=== PATIENT | male | born 1965 | race Hispanic/Latino ===

== ENCOUNTER → 2018-01-22 | Outpatient (CLI) | payer MEDICARE ==
[~2018-01-22] MED LIST: AMLO5TAB4 PO; ASPI-1005 PO; CARV25TA PO; GABA-529 PO; HYDR25 PO; INSNPH SQ; Isosorbide Mononitrate PO; TORS20TA4 PO; TRAM50TA4 PO
== END | disposition home or self-care (01) ==
LOC: SHCH 14:39
PROVIDERS: ATTEND Internal Medicine Cardiovascular Disease
DX: I31.3 Pericardial effusion (noninflammatory) (principal); I34.0 Nonrheumatic mitral (valve) insufficiency; I51.7 Cardiomegaly; R94.39 Abnormal result of other cardiovascular function study
CPT/HCPCS: 93306

== ENCOUNTER 2018-12-18 00:08 | Emergency (ER) | payer MEDICARE ==
[2018-12-18 00:51] LABS: BASOPHILS % (AUTO) 0.8 % (0.0-5.0); HEMATOCRIT 32.3 % (42-54); LYMPHOCYTES % (AUTO) 11.5 % (21.0-51.0); MEAN CORPUSCULAR HEMOGLOBIN 31.8 pg (27.0-33.0); MEAN CORPUSCULAR HGB CONC 34.1 g/dL (32.0-36.0); MEAN CORPUSCULAR VOLUME 93.4 fL (79-99); MONOCYTES % (AUTO) 12.3 % (3.0-13.0); NEUTROPHILS % (AUTO) 73.4 % (40.0-77.0); PLATELET COUNT (AUTO) 83 K/uL (130-400); RED BLOOD CELL COUNT(AUTO) 3.46 MIL/uL (4.50-6.20); RED CELL DISTRIBUTION WIDTH 17.1 % (11.0-15.5); WHITE BLOOD COUNT (AUTO) 4.3 K/uL (4.8-10.8)
[2018-12-18 01:05] LABS: CREATININE 6.5 mg/dL (0.5-1.5); POTASSIUM 3.9 mmol/L (3.5-5.1)
[2018-12-18 01:06] LABS: ALBUMIN 3.5 g/dL (3.5-5.0); TOTAL PROTEIN, SERUM 7.8 g/dL (6.0-8.3)
[2018-12-18 01:33] LABS: APPEARANCE,URINE Clear (CLEAR); BILIRUBIN,URINE Negative (NEGATIVE); COLOR,URINE Yellow (YELLOW); GLUCOSE, URINE (UA) 500 mg/dL (NEGATIVE); KETONES,URINE Negative (NEGATIVE); LEUKOCYTE ESTERASE ,URINE Small (NEGATIVE); NITRATE,URINE Negative (NEGATIVE); OCCULT BLOOD,URINE Negative (NEGATIVE); PH,URINE >=9.0 (5.0-8.0); PROTEIN,URINE >=1000 mg/dL (NEGATIVE); UROBILINOGEN,URINE 0.2 mg/dL (0.2-1.0)
[2018-12-18 01:42] LABS: BACTERIA,URINE None Seen /HPF (None Seen); RBC,URINE None Seen /HPF (0-1); SQUAMOUS EPITHELIAL CELL,UR Rare /HPF (0-2)
[2018-12-18] MEDS ORDERED: CEPHALEXIN 500 MG CAPSULE ONE (02:09)
== END 2018-12-18 02:21 | disposition home or self-care (01) ==
LOC: EDH 00:08
DX: N39.0 Urinary tract infection, site not specified (principal); R42 Dizziness and giddiness; R19.7 Diarrhea, unspecified; R11.10 Vomiting, unspecified; I12.0 Hypertensive chronic kidney disease with stage 5 chronic kidney disease or end stage renal disease; E11.22 Type 2 diabetes mellitus with diabetic chronic kidney disease; N18.6 End stage renal disease; Z91.018 Allergy to other foods; Z98.890 Other specified postprocedural states; Z72.0 Tobacco use
CPT/HCPCS: 36415; 71046; 80053; 81001; 85025; 87040; 87088; 93005

== ENCOUNTER 2019-04-12 14:31 | Emergency (ER) | payer MEDICARE ==
[2019-04-12] MEDS ORDERED: MORPHINE SULFATE 4 MG/1ML SYG ONE (16:13)
[2019-04-12] MEDS ORDERED: ONDANSETRON HCL 4 MG/2 ML VIAL ONE (16:13)
[2019-04-12 16:18] LABS: BASOPHILS % (AUTO) 0.8 % (0.0-5.0); EOSINOPHILS % (AUTO) 2.4 % (0.0-8.0); LYMPHOCYTES % (AUTO) 10.1 % (21.0-51.0); MEAN CORPUSCULAR HEMOGLOBIN 31.6 pg (27.0-33.0); MEAN CORPUSCULAR HGB CONC 34.4 g/dL (32.0-36.0); MONOCYTES % (AUTO) 11.3 % (3.0-13.0); NEUTROPHILS % (AUTO) 75.4 % (40.0-77.0); NUCLEATED RED BLOOD CELLS 0.1 % (0.0-0.19); PLATELET COUNT (AUTO) 79 K/uL (130-400); RED BLOOD CELL COUNT(AUTO) 3.26 MIL/uL (4.50-6.20); RED CELL DISTRIBUTION WIDTH 15.7 % (11.0-15.5); WHITE BLOOD COUNT (AUTO) 4.1 K/uL (4.8-10.8)
[2019-04-12 16:38] LABS: CREATININE 5.6 mg/dL (0.5-1.5); POTASSIUM 3.5 mmol/L (3.5-5.1)
[2019-04-12 16:40] LABS: PARTIAL THROMBOPLASTIN TIME 33.7 SEC (26.3-35.5)
[2019-04-12 16:54] LABS: ALBUMIN 3.5 g/dL (3.5-5.0); BILIRUBIN,DIRECT 0.6 mg/dL (0.0-0.3); BILIRUBIN,TOTAL 1.5 mg/dL (0.2-1.0); TOTAL PROTEIN, SERUM 7.9 g/dL (6.0-8.3)
[2019-04-12 16:57] LABS: INR 1.13 (0.85-1.15); PROTHROMBIN TIME 11.8 SEC (9.6-11.6)
== END 2019-04-12 18:26 | disposition home or self-care (01) ==
LOC: EDH 14:31
DX: R60.1 Generalized edema (principal); R10.12 Left upper quadrant pain; R11.2 Nausea with vomiting, unspecified; R19.7 Diarrhea, unspecified; I12.0 Hypertensive chronic kidney disease with stage 5 chronic kidney disease or end stage renal disease; E11.22 Type 2 diabetes mellitus with diabetic chronic kidney disease; N18.6 End stage renal disease; Z99.2 Dependence on renal dialysis; Z98.890 Other specified postprocedural states; Z72.0 Tobacco use; Z91.018 Allergy to other foods
CPT/HCPCS: 36415; 74176; 80048; 80076; 82550; 83605; 83690; 85025; 85610; 85730; 93005; 96374; 96375; 99285; J2270; J2405

== ENCOUNTER 2019-10-04 00:13 | Emergency (ER) | payer MEDICARE ==
[2019-10-04] MEDS ORDERED: KETOROLAC TROMETHAMINE 60 MG/2 ML VIAL ONE (01:19)
[2019-10-04] MEDS ORDERED: ORPHENADRINE CITRATE 30 MG/ML ML ONE (01:19)
== END 2019-10-04 01:44 | disposition home or self-care (01) ==
LOC: EDH 00:13
DX: S13.4XXA Sprain of ligaments of cervical spine, initial encounter (principal); I12.0 Hypertensive chronic kidney disease with stage 5 chronic kidney disease or end stage renal disease; E11.22 Type 2 diabetes mellitus with diabetic chronic kidney disease; N18.6 End stage renal disease; Z99.2 Dependence on renal dialysis; Z72.0 Tobacco use; Z91.018 Allergy to other foods; X58.XXXA Exposure to other specified factors, initial encounter; Y93.89 Activity, other specified; Y92.89 Other specified places as the place of occurrence of the external cause; Y99.8 Other external cause status
CPT/HCPCS: 96372 ×2; 99284; J1885; J2360

== ENCOUNTER 2019-10-17 03:22 | Emergency (ER) | payer MEDICARE ==
[2019-10-17 03:41] LABS: BASOPHILS % (AUTO) 0.7 % (0.0-5.0); EOSINOPHILS % (AUTO) 2.9 % (0.0-8.0); HEMATOCRIT 30.7 % (42-54); LYMPHOCYTES % (AUTO) 11.2 % (21.0-51.0); MEAN CORPUSCULAR HEMOGLOBIN 30.4 pg (27.0-33.0); MEAN CORPUSCULAR HGB CONC 32.9 g/dL (32.0-36.0); MEAN CORPUSCULAR VOLUME 92.5 fL (79-99); MONOCYTES % (AUTO) 11.2 % (3.0-13.0); NEUTROPHILS % (AUTO) 73.8 % (40.0-77.0); PLATELET COUNT (AUTO) 97 K/uL (130-400); RED BLOOD CELL COUNT(AUTO) 3.32 MIL/uL (4.50-6.20); RED CELL DISTRIBUTION WIDTH 15.9 % (11.0-15.5); WHITE BLOOD COUNT (AUTO) 4.5 K/uL (4.8-10.8)
[2019-10-17 03:51] LABS: CREATININE 6.9 mg/dL (0.5-1.5); POTASSIUM 3.7 mmol/L (3.5-5.1)
[2019-10-17 03:55] LABS: ALBUMIN 3.1 g/dL (3.5-5.0); BILIRUBIN,TOTAL 1.1 mg/dL (0.2-1.0); TOTAL PROTEIN, SERUM 7.6 g/dL (6.0-8.3)
[2019-10-17 04:04] LABS: INR 1.07 (0.85-1.15); PARTIAL THROMBOPLASTIN TIME 33.5 SEC (26.3-35.5); PROTHROMBIN TIME 11.5 SEC (9.6-11.6)
[2019-10-17 04:09] LABS: B-TYPE NATRIURETIC PEPTIDE 3530 pg/mL (0-100)
== END 2019-10-17 06:25 | disposition home or self-care (01) ==
LOC: EDH 03:22
DX: R07.89 Other chest pain (principal); I12.0 Hypertensive chronic kidney disease with stage 5 chronic kidney disease or end stage renal disease; E11.22 Type 2 diabetes mellitus with diabetic chronic kidney disease; N18.6 End stage renal disease; Z91.018 Allergy to other foods; Z99.2 Dependence on renal dialysis; Z72.0 Tobacco use; Z98.890 Other specified postprocedural states
CPT/HCPCS: 36415; 71045; 80053; 82550; 83880; 84484; 85025; 85610; 85730; 93005

== ENCOUNTER 2019-11-01 04:45 | Emergency (ER) | payer MEDICARE ==
[2019-11-01] MEDS ORDERED: ZOSYN 3.375GM+NS 50ML 50 ML IV ONE (06:14)
== END 2019-11-01 06:41 | disposition home or self-care (01) ==
LOC: EDH 04:45
DX: M62.838 Other muscle spasm (principal); M54.5 Low back pain; Z91.018 Allergy to other foods; E11.9 Type 2 diabetes mellitus without complications; I10 Essential (primary) hypertension; Z72.0 Tobacco use
CPT/HCPCS: 72100; 96372 ×2; 99284; J2543

== ENCOUNTER 2019-11-06 17:36 | Emergency (ER) | payer MEDICARE ==
[2019-11-06] MEDS ORDERED: KETOROLAC TROMETHAMINE 30MG/ML ONE (19:27)
[2019-11-06 19:29] LABS: BASOPHILS % (AUTO) 0.3 % (0.0-5.0); EOSINOPHILS % (AUTO) 0.9 % (0.0-8.0); HEMATOCRIT 30.8 % (42-54); LYMPHOCYTES % (AUTO) 5.2 % (21.0-51.0); MEAN CORPUSCULAR HEMOGLOBIN 30.7 pg (27.0-33.0); MEAN CORPUSCULAR HGB CONC 32.8 g/dL (32.0-36.0); MEAN CORPUSCULAR VOLUME 93.6 fL (79-99); MONOCYTES % (AUTO) 11.6 % (3.0-13.0); NEUTROPHILS % (AUTO) 81.7 % (40.0-77.0); PLATELET COUNT (AUTO) 145 K/uL (130-400); RED BLOOD CELL COUNT(AUTO) 3.29 MIL/uL (4.50-6.20); RED CELL DISTRIBUTION WIDTH 14.9 % (11.0-15.5); WHITE BLOOD COUNT (AUTO) 9.4 K/uL (4.8-10.8)
[2019-11-06 20:01] LABS: ALBUMIN 2.9 g/dL (3.5-5.0); BILIRUBIN,TOTAL 0.9 mg/dL (0.2-1.0); CREATININE 7.1 mg/dL (0.5-1.5); CRP QUANTITATIVE 54.2 mg/L (0.00-9.0); TOTAL PROTEIN, SERUM 7.9 g/dL (6.0-8.3)
[2019-11-06] MEDS ORDERED: LIDOCAINE 1%-EPI 1:100,000 20 ML VIAL IJ ONE (20:37)
[2019-11-06 20:46] LABS: ERYTHROCYTE SEDIMENTATION RATE 56 MM/HR (0-20)
[2019-11-06 22:25] LABS: APPEARANCE BODY FLUID CLOUDY (CLEAR); COLOR,BODY FLUID YELLOW (LT YELLOW); SPECIMENTYPE,BODY FLUID SYNOVIAL; TOTAL VOLUME,BODY FLUID 40 mL
[2019-11-06 22:26] LABS: BODY FLUID WBC 25744 /cu. mm.
[2019-11-06 22:27] LABS: BODY FLUID RBC 556 /cu. mm.
[2019-11-06 22:31] LABS: GLUCOSE,BODY FLUID 75 mg/dL (1-40)
[2019-11-06 22:52] LABS: BF LYMPHOCYTE 2 %
[2019-11-07 02:51] LABS: CRYSTALS, SYNOVIAL FLUID SEE SEPARATE REPORT
== END 2019-11-06 23:03 | disposition home or self-care (01) ==
LOC: EDH 17:36
DX: M25.462 Effusion, left knee (principal); I12.0 Hypertensive chronic kidney disease with stage 5 chronic kidney disease or end stage renal disease; E11.22 Type 2 diabetes mellitus with diabetic chronic kidney disease; N18.6 End stage renal disease; Z72.0 Tobacco use; Z91.018 Allergy to other foods
CPT/HCPCS: 20610; 29505; 36415; 73562; 80053; 82945; 85025; 85651; 86140; 87071; 87205; 89051; 89060; 96374; 99284; J1885; J3490

== ENCOUNTER 2019-11-25 02:32 | Inpatient (IN) | payer MEDICARE ==
[~2019-11-25] VITALS: Ht 175.3 cm; Wt 86.9 kg
[2019-11-25] MEDS ORDERED: DICYCLOMINE HCL 10 MG/ML 2ML AMP IM ONE (05:04)
[2019-11-25] MEDS ORDERED: ONDANSETRON HCL 4 MG/2 ML VIAL ONE (05:04)
[2019-11-25 05:09] LABS: BASOPHILS % (AUTO) 0.3 % (0.0-5.0); EOSINOPHILS % (AUTO) 1.6 % (0.0-8.0); LYMPHOCYTES % (AUTO) 9.2 % (21.0-51.0); MEAN CORPUSCULAR HEMOGLOBIN 31.6 pg (27.0-33.0); MEAN CORPUSCULAR HGB CONC 33.1 g/dL (32.0-36.0); MEAN CORPUSCULAR VOLUME 95.5 fL (79-99); MONOCYTES % (AUTO) 12.7 % (3.0-13.0); NEUTROPHILS % (AUTO) 75.6 % (40.0-77.0); PLATELET COUNT (AUTO) 118 K/uL (130-400); RED BLOOD CELL COUNT(AUTO) 1.55 MIL/uL (4.50-6.20); RED CELL DISTRIBUTION WIDTH 16.2 % (11.0-15.5); WHITE BLOOD COUNT (AUTO) 7.1 K/uL (4.8-10.8)
[2019-11-25 05:14] LABS: HEMATOCRIT 14.8 % (42-54)
[2019-11-25 05:26] LABS: INR 1.04 (0.85-1.15); PARTIAL THROMBOPLASTIN TIME 31.7 SEC (26.3-35.5); PROTHROMBIN TIME 11.2 SEC (9.6-11.6)
[2019-11-25 05:41] LABS: ALBUMIN 2.3 g/dL (3.5-5.0); BILIRUBIN,DIRECT 0.3 mg/dL (0.0-0.3); BILIRUBIN,TOTAL 0.6 mg/dL (0.2-1.0); POTASSIUM 4.7 mmol/L (3.5-5.1); TOTAL PROTEIN, SERUM 5.6 g/dL (6.0-8.3)
[2019-11-25] MEDS ORDERED: SODIUM CHLORIDE 0.9% 250 ML IV ONE (07:43)
[2019-11-25] MEDS ORDERED: MAG HYDROX/AL HYDROX/SIMETH ES 30 ML SUSP UDCUP PO PRN (08:45)
[2019-11-25] MEDS ORDERED: DiphenhydrAMINE HCL 50 MG/ML VIAL IV PRN (08:45)
[2019-11-25] MEDS ORDERED: NITROGLYCERIN 0.4 MG SL TAB SL PRN (08:45)
[2019-11-25] MEDS ORDERED: ONDANSETRON HCL 4 MG/2 ML VIAL IV PRN (08:45)
[2019-11-25] MEDS ORDERED: LACTULOSE 20 GM/30 ML UDCUP PO PRN (08:45)
[2019-11-25] MEDS ORDERED: GUAIFENESIN-DM 200/20 MG 10 ML PO PRN (08:45)
[2019-11-25] MEDS ORDERED: HYDRALAZINE HCL 20 MG/ML VIAL IV PRN (08:45)
[2019-11-25] MEDS ORDERED: ACETAMINOPHEN 325 MG TAB PO PRN (08:45)
[2019-11-25] MEDS ORDERED: DIPHENHYDRAMINE HCL 25 MG CAPSULE PO PRN (08:45)
[2019-11-25 10:37] VITALS: BP 115/52
[2019-11-25] MEDS ORDERED: ONDANSETRON HCL 4 MG/2 ML VIAL IVP PRN (13:45)
[2019-11-25] MEDS ORDERED: EPOETIN ALFA 10,000 UNIT/ML VIAL SQ SCH (15:00)
[2019-11-25 15:56] LABS: % IRON SATURATION 34.5 % (30-44)
[2019-11-25 16:15] VITALS: BP 108/80
[2019-11-25] MEDS: ACETAMINOPHEN 325 MG TAB PO PRN ×2 (17:58→23:38)
[2019-11-25 19:50] VITALS: BP 132/58
[2019-11-25 23:49] VITALS: BP 119/62
[2019-11-26] VITALS (19 sets, daily range): BP systolic 112–147; BP diastolic 48–78
[2019-11-26] MEDS ORDERED: TRAMADOL HCL 50 MG TABLET PO SCH (02:30)
[2019-11-26] MEDS ORDERED: INSU100I35 SQ ×2 (02:44)
[2019-11-26] MEDS ORDERED: HYDR-4153 PO (02:46)
[2019-11-26] MEDS ORDERED: ISOS30TA6 PO (02:50)
[2019-11-26] MEDS ORDERED: SEVE800T7 PO (02:50)
[2019-11-26 04:14] LABS: BASOPHILS % (AUTO) 0.5 % (0.0-5.0); EOSINOPHILS % (AUTO) 2.1 % (0.0-8.0); LYMPHOCYTES % (AUTO) 10.6 % (21.0-51.0); MEAN CORPUSCULAR HEMOGLOBIN 30.5 pg (27.0-33.0); MEAN CORPUSCULAR HGB CONC 32.5 g/dL (32.0-36.0); MEAN CORPUSCULAR VOLUME 93.6 fL (79-99); MONOCYTES % (AUTO) 14.6 % (3.0-13.0); NEUTROPHILS % (AUTO) 71.9 % (40.0-77.0); PLATELET COUNT (AUTO) 122 K/uL (130-400); RED CELL DISTRIBUTION WIDTH 15.3 % (11.0-15.5); WHITE BLOOD COUNT (AUTO) 5.8 K/uL (4.8-10.8)
[2019-11-26 04:17] LABS: HEMATOCRIT 20.6 % (42-54)
[2019-11-26 04:21] LABS: INR 1.01 (0.85-1.15); PARTIAL THROMBOPLASTIN TIME 33.1 SEC (26.3-35.5); PROTHROMBIN TIME 10.9 SEC (9.6-11.6)
[2019-11-26 04:37] LABS: ALBUMIN 2.6 g/dL (3.5-5.0); BILIRUBIN,TOTAL 1.3 mg/dL (0.2-1.0); CREATININE 6.4 mg/dL (0.5-1.5); MAGNESIUM 2.2 mg/dL (1.80-2.40); PHOSPHORUS 5.9 mg/dL (2.5-4.9); POTASSIUM 3.7 mmol/L (3.5-5.1)
[2019-11-26 08:13] LABS: HEPATITIS A ANTIBODY IGM Negative (Negative); HEPATITIS B CORE IGM Negative (Negative); HEPATITIS Bs ANTIGEN SCREEN P Negative (Negative)
[2019-11-26] MEDS ORDERED: PANTOPRAZOLE SODIUM 40 MG TABLET.DR PO SCH (09:00)
[2019-11-26] MEDS ORDERED: PROPOFOL 10 MG/ML 20ML VIAL IV ONE (10:56)
[2019-11-26] MEDS ORDERED: SODIUM CHLORIDE 0.9% 500ML 500 ML IV ONE (12:59)
--- NOTE | 2019-11-26 14:27 | NUR ---
NUTR[facility] EDUCATION PARISH provided Renal Dialysis Nutrition education to Pt. PARISH reviewed reference materials and answered all of Pt questions. Pt denies need for Diabetes nutrition education secondary to previous weight loss and currently PRN medications. Pt denies need for Cirrhosis nutrition education secondary to follow up appt for confirmation (as per Pt) scheduled for December 03, 2019. Addendum: 11/26/19 at [address] Amended: Links added.
--- NOTE | 2019-11-26 14:39 | NUR ---
RD Notification Pt admitted with Ascites. Food allergies: Broccoli, Apple, Celery. Pt with Clear Liquid diet order in place. Diet held this AM for procedure. Pt reports not eating anything today at time of visit. RD provided Renal Dialysis nutrition education. Pt denies need for Cirrhosis and Diabetes nutrition education (Please See Nutrition Education note). Pt with moderate fluid retention (BLE 3+ pitting edema as per EMR). Recommend Adv diet as tolerated to Renal dialysis diet order Recommend 1500mL Fluid Restriction RD provided Nutrition Education RD to continue to monitor. Please notify as additional nutrition concerns arise. Thank you. Addendum: 11/26/19 at [address] RD Amended: Links added.
[2019-11-26] MEDS ORDERED: ALBUMIN (HUMAN) 25% 200 ML IV SCH (14:45)
--- NOTE | 2019-11-26 15:01 | NUR ---
RE: PARACENTESIS PATIENT S/P EGD WITH MAC TODAY AND NOW GETTING HEMODIALYSIS WITH [address] Luis Armando BAER NOTIFIED OF PATENT'S CURRENT STATUS AND RESCHEDULED PARACENTESIS FOR TOMORROW. PROCEDURE OUTCOME REPORTED TO Yelena FONSECA RN
--- NOTE | 2019-11-26 17:41 | NUR ---
MET W PATIENT FOR DC PLANNING- STATES IS INDEPENDENT, ACTIVE, NO DME, HOME SAFE AND ACCESSIBLE LIVES WITH SPOUSE SANTIAGO WHO WILL PROVIDE TRANSPORT STATES HAS HD MWF AT [facility], ON HD X 3 YEARS, NO DC NEEDS ANTICIPATED, Addendum: 11/26/19 at 1743 by SHAYNE GONZALEZ RN CM Amended: Links added.
--- NOTE | 2019-11-26 17:45 | NUR ---
DISPO WILL BE TO HOME IN CARE OF FAMILY Addendum: 11/26/19 at 1745 by SHAYNE GONZALEZ RN CM Amended: Links added.
[2019-11-26 18:07] LABS: HEMATOCRIT 23.9 % (42-54)
--- NOTE | 2019-11-26 20:24 | NUR ---
SALTILLO PT REQUESTED TO BE RELEASED AM DESPITE REPEATED EXPLANATION THAT MD WANTS TO KEEP PT AT LEAST 24 HOURS FOR PARACENTESIS PROCEDURE. RISKS AND HAZARDS EXPLAINED TO PT,STILL INSISTS AND IS DECIDED TO LEAVE AMA,JEFF HASSAN NP AWARE AND SPOKE WITH PT. SALTILLO DOCUMENT SIGNED. PIV DCD ASEPTICALLY ,WITH GOOD HEMOSTASIS. DCD STABLE AMA Addendum: 11/26/19 at 2158 by BEATRIZ ROBERTS RN RN Amended: Links added.
== END 2019-11-26 20:29 | disposition left against medical advice (07) | DRG 377 ==
LOC: EDH 02:32 → EDHIP 05:56 → DAHIP 11:30 → 3AH 18:29 → 3CH 18:43
PROVIDERS: ADMIT Internal Medicine; ATTEND Internal Medicine
PROC: 5A1D70Z Performance of Urinary Filtration, Intermittent, Less than 6 Hours Per Day (ICD-10-PCS; 2019-11-25)
PROC: 30233N1 Transfusion of Nonautologous Red Blood Cells into Peripheral Vein, Percutaneous Approach (ICD-10-PCS; principal; 2019-11-26)
PROC: 5A1D70Z Performance of Urinary Filtration, Intermittent, Less than 6 Hours Per Day (ICD-10-PCS; 2019-11-26)
PROC: 0DJ08ZZ Inspection of Upper Intestinal Tract, Via Natural or Artificial Opening Endoscopic (ICD-10-PCS; 2019-11-26)
DX: K92.2 Gastrointestinal hemorrhage, unspecified (principal); N18.6 End stage renal disease; I12.0 Hypertensive chronic kidney disease with stage 5 chronic kidney disease or end stage renal disease; E87.70 Fluid overload, unspecified; D64.9 Anemia, unspecified; E11.51 Type 2 diabetes mellitus with diabetic peripheral angiopathy without gangrene; K70.31 Alcoholic cirrhosis of liver with ascites; E11.22 Type 2 diabetes mellitus with diabetic chronic kidney disease; J44.9 Chronic obstructive pulmonary disease, unspecified; Z91.018 Allergy to other foods; Z88.8 Allergy status to other drugs, medicaments and biological substances; Z99.2 Dependence on renal dialysis; Z91.19 Patient's noncompliance with other medical treatment and regimen; Z83.3 Family history of diabetes mellitus; Z82.5 Family history of asthma and other chronic lower respiratory diseases; Z82.3 Family history of stroke; Z82.0 Family history of epilepsy and other diseases of the nervous system; Z82.49 Family history of ischemic heart disease and other diseases of the circulatory system
CPT/HCPCS: 36415; 43235; 71045; 74176; 80048; 80053; 80074; 80076; 82550; 82728; 82948; 83540; 83550; 83690; 83735; 84100; 84484; 85014; 85018; 85025; 85610; 85730; 86850; 86900; 86901; 86922; 90935; 93005; G0378; J0500; J0885; J2405; J2704; J7040; J7050; P9016; P9046

== ENCOUNTER 2020-04-16 18:46 | Inpatient (IN) | payer MEDICARE ==
[~2020-04-16] VITALS: Ht 175.3 cm; Wt 89.7 kg
[~2020-04-16 18:46] MED LIST changes: +HYDR-4153 PO; -HYDR25 PO; -INSNPH SQ; +INSU100I35 SQ; +ISOS30TA6 PO; -Isosorbide Mononitrate PO; +SEVE800T7 PO; -TORS20TA4 PO; -TRAM50TA4 PO
[2020-04-16] MEDS ORDERED: ONDANSETRON HCL 4 MG/2 ML VIAL ONE (20:03)
[2020-04-16 20:28] LABS: BASOPHILS % (AUTO) 0.6 % (0.0-5.0); EOSINOPHILS % (AUTO) 1.4 % (0.0-8.0); HEMATOCRIT 28.1 % (42-54); LYMPHOCYTES % (AUTO) 7.3 % (21.0-51.0); MEAN CORPUSCULAR HEMOGLOBIN 27.8 pg (27.0-33.0); MEAN CORPUSCULAR VOLUME 89.8 fL (79-99); MONOCYTES % (AUTO) 5.7 % (3.0-13.0); NEUTROPHILS % (AUTO) 84.3 % (40.0-77.0); PLATELET COUNT (AUTO) 198 K/uL (130-400); RED BLOOD CELL COUNT(AUTO) 3.13 MIL/uL (4.50-6.20); RED CELL DISTRIBUTION WIDTH 15.9 % (11.0-15.5)
[2020-04-16 20:42] LABS: INR 1.22 (0.85-1.15); PARTIAL THROMBOPLASTIN TIME 33.7 SEC (26.3-35.5); PROTHROMBIN TIME 13.1 SEC (9.6-11.6)
[2020-04-16 20:45] LABS: ALANINE AMINOTRANSFERASE 7 U/L (12-78); ALBUMIN 1.9 g/dL (3.5-5.0); ASPARTATE AMINOTRANSFERASE 15 U/L (10-37); BILIRUBIN,TOTAL 0.7 mg/dL (0.2-1.0); CARBON DIOXIDE 24 mmol/L (21-32); GLOMERULAR FILTR. RATE CALC 7 mL/min (>60); GLUCOSE,RANDOM 151 mg/dL (70-105); POTASSIUM 3.7 mmol/L (3.5-5.1); SODIUM SERUM 128 mmol/L (136-145); TOTAL PROTEIN, SERUM 8.5 g/dL (6.0-8.3); UREA NITROGEN, BLOOD 54 mg/dL (7-18)
[2020-04-16 20:46] LABS: LIPASE < 50 U/L (114-286)
[2020-04-16 20:47] LABS: CHLORIDE 89 mmol/L (101-111); CREATININE 8.6 mg/dL (0.5-1.5)
[2020-04-16 21:06] LABS: B-TYPE NATRIURETIC PEPTIDE > 5000 pg/mL (0-100)
[2020-04-16] MEDS ORDERED: CEFOTAXIME SODIUM 1 GM VIAL IVP SCH (21:45)
[2020-04-16] MEDS ORDERED: GLUCAGON 1MG KIT 1 MG ML IM PRN (22:00)
[2020-04-16] MEDS ORDERED: DEXTROSE 50%-WATER 50 ML DISP.SYRIN IV PRN (22:00)
[2020-04-16] MEDS ORDERED: ONDANSETRON HCL 4 MG/2 ML VIAL IV PRN (22:00)
[2020-04-16] MEDS: INSULIN HUMULIN R 100 UNIT/ML 3ML SQ SCH (22:00)
[2020-04-16] MEDS ORDERED: ACETAMINOPHEN 325 MG TAB PO PRN ×2 (22:00)
[2020-04-16] MEDS ORDERED: DIPHENHYDRAMINE HCL 25 MG CAPSULE PO PRN (22:00)
[2020-04-16] MEDS ORDERED: NITROGLYCERIN 0.4 MG SL TAB SL PRN (22:00)
[2020-04-16 22:08] LABS: MAGNESIUM 2.1 mg/dL (1.80-2.40); PHOSPHORUS 7.3 mg/dL (2.5-4.9)
[2020-04-16 22:12] LABS: HEMOGLOBIN A1C 6.3 % (4.0-6.0)
[2020-04-16] MEDS ORDERED: WATER FOR INJECTION,STERILE 5 ML VIAL INJ SCH (22:30)
[2020-04-16] MEDS ORDERED: COMPOUND IV MISC 1 EACH IVSOLN MISC PRN (22:30)
[2020-04-16] MEDS: FUROSEMIDE 10 MG/ML 4ML VIAL IV SCH (23:00)
[2020-04-16] MEDS ORDERED: CEFOXITIN SODIUM 2 GM VIAL ONE (23:05)
[2020-04-16] MEDS ORDERED: FAMOTIDINE/PF 20 MG/2 ML VIAL IV ONE (23:06)
[2020-04-16] MEDS ORDERED: SODIUM CHLORIDE 0.9% 100 ML IV ONE (23:07)
[2020-04-16] MEDS ORDERED: FUROSEMIDE 10 MG/ML 2ML VIAL ONE (23:21)
[2020-04-16 23:50] VITALS: BP 125/79
[2020-04-17 04:00] VITALS: BP 119/77
[2020-04-17 05:18] LABS: BASOPHILS % (AUTO) 0.5 % (0.0-5.0); EOSINOPHILS % (AUTO) 2.7 % (0.0-8.0); HEMATOCRIT 25.5 % (42-54); MEAN CORPUSCULAR HEMOGLOBIN 27.8 pg (27.0-33.0); MEAN CORPUSCULAR VOLUME 89.8 fL (79-99); MONOCYTES % (AUTO) 8.8 % (3.0-13.0); NEUTROPHILS % (AUTO) 79.4 % (40.0-77.0); PLATELET COUNT (AUTO) 184 K/uL (130-400); RED BLOOD CELL COUNT(AUTO) 2.84 MIL/uL (4.50-6.20); RED CELL DISTRIBUTION WIDTH 15.9 % (11.0-15.5); WHITE BLOOD COUNT (AUTO) 8.5 K/uL (4.8-10.8)
[2020-04-17 05:26] LABS: INR 1.24 (0.85-1.15); PARTIAL THROMBOPLASTIN TIME 33.6 SEC (26.3-35.5); PROTHROMBIN TIME 13.3 SEC (9.6-11.6)
[2020-04-17 05:36] LABS: ALBUMIN 1.7 g/dL (3.5-5.0); ASPARTATE AMINOTRANSFERASE 15 U/L (10-37); BILIRUBIN,TOTAL 0.7 mg/dL (0.2-1.0); CARBON DIOXIDE 26 mmol/L (21-32); GLOMERULAR FILTR. RATE CALC 7 mL/min (>60); GLUCOSE,RANDOM 117 mg/dL (70-105); PHOSPHORUS 7.3 mg/dL (2.5-4.9); SODIUM SERUM 128 mmol/L (136-145); TOTAL PROTEIN, SERUM 7.7 g/dL (6.0-8.3); UREA NITROGEN, BLOOD 56 mg/dL (7-18)
[2020-04-17 05:38] LABS: ALANINE AMINOTRANSFERASE < 6 U/L (12-78)
[2020-04-17 05:42] LABS: CHLORIDE 89 mmol/L (101-111); CREATININE 9.1 mg/dL (0.5-1.5)
[2020-04-17] MEDS: INSULIN HUMULIN R 100 UNIT/ML 3ML SQ SCH ×4 (07:30→21:00)
[2020-04-17 09:46] VITALS: BP 104/83
--- NOTE | 2020-04-17 11:25 | NUR ---
DCP CM met with pt in room currently receiving dialysis discussed dc plans. Pt is independent prior to admission, lives at home with spouse. Goes to [facility]. Denies any other equipments/services. Feels safe to go back home, spouse able to assist with transportation and needs as necessary. DC plan to home once stable. CM to continue to follow up. Addendum: 04/17/20 at 1126 by EFRAIN FARMER LVN CM Amended: Links added.
[2020-04-17 11:55] VITALS: BP 131/89
[2020-04-17 13:44] LABS: HEMATOCRIT 27.2 % (42-54)
[2020-04-17] MEDS: CEFOXITIN SODIUM 1 GM VIAL IVP SCH ×2 (14:04→21:14)
[2020-04-17] MEDS: FAMOTIDINE/PF 20 MG/2 ML VIAL IV SCH ×2 (14:04→21:15)
[2020-04-17 14:17] LABS: INR 1.21 (0.85-1.15); PARTIAL THROMBOPLASTIN TIME 34.5 SEC (26.3-35.5)
--- NOTE | 2020-04-17 14:17 | NUR ---
CHART CHECK COMPLETED. Pt IS A 54 Y.O. MALE ADMITTED SECONDARY TO FLUID OVERLOAD AND HYPONATREMIA ASCITES. Pt HAS A PAST MEDICAL HISTORY SIGNIFICANT FOR DM, HTN, ESRD-HD, LIVER CIRRHOSIS, LAVA PLACEMENT, KNEE SX, AND PARACENTESIS. Pt CURRENTLY ON CLEAR LIQUID DIET. PLEASE REQUEST FORMAL SKILLED SPEECH/SWALLOW EVALUATION IF Pt PRESENTS WITH +S/S OF ASPIRATION SUCH COUGH RESPONSE, THROAT CLEAR, OR WET VOCAL QUALITY DURING P.O. Addendum: 04/17/20 at 1420 by DAWOOD CABA [facility] Amended: Links added.
[2020-04-17] MEDS ORDERED: ALBUMIN (HUMAN) 25% 200 ML IV SCH (16:00)
[2020-04-17 17:55] VITALS: BP 115/72
--- NOTE | 2020-04-17 19:12 | NUR ---
DIALYSIS PATIENT RECEIVED DIALYSIS TODAY FROM 0915 TO 1215 HOURS, REMOVED WAS 3.5 LITERS, PATIENT TOLERATED WITHOUT INCIDENT. VITALS WITHIN NORMAL LIMITS.
[2020-04-17 20:00] VITALS: BP 126/80
[2020-04-17] MEDS: FUROSEMIDE 10 MG/ML 4ML VIAL IV SCH (21:16)
[2020-04-18] VITALS: BP 114/75
[2020-04-18 04:00] VITALS: BP 138/85
[2020-04-18 04:59] LABS: HEMATOCRIT 25.9 % (42-54); MEAN CORPUSCULAR HEMOGLOBIN 27.8 pg (27.0-33.0); MEAN CORPUSCULAR HGB CONC 30.5 g/dL (32.0-36.0); MEAN CORPUSCULAR VOLUME 91.2 fL (79-99); RED BLOOD CELL COUNT(AUTO) 2.84 MIL/uL (4.50-6.20); RED CELL DISTRIBUTION WIDTH 16.4 % (11.0-15.5); WHITE BLOOD COUNT (AUTO) 8.1 K/uL (4.8-10.8)
[2020-04-18 05:15] LABS: ALBUMIN 1.7 g/dL (3.5-5.0); BILIRUBIN,DIRECT 0.4 mg/dL (0.0-0.3); BILIRUBIN,TOTAL 0.7 mg/dL (0.2-1.0); CREATININE 7.7 mg/dL (0.5-1.5); PHOSPHORUS 6.1 mg/dL (2.5-4.9); POTASSIUM 3.8 mmol/L (3.5-5.1); TOTAL PROTEIN, SERUM 7.8 g/dL (6.0-8.3)
[2020-04-18] MEDS: INSULIN HUMULIN R 100 UNIT/ML 3ML SQ SCH ×3 (06:51→16:30)
[2020-04-18 08:30] VITALS: BP 128/81
[2020-04-18] MEDS: CEFOXITIN SODIUM 1 GM VIAL IVP SCH (09:55)
[2020-04-18] MEDS: FAMOTIDINE/PF 20 MG/2 ML VIAL IV SCH ×2 (09:56→19:47)
--- NOTE | 2020-04-18 12:28 | NUR ---
U/S GUIDED PARACENTESIS PROCEDURE PERFORMED BY DR. CHOWDHURY. PUNCTURE SITE LEFT LOWER QUADRANT AND PATIENT TOLERATED PROCEDURE WELL. TOTAL REMOVED 3.2 LITERS OF DARK BROWN CLOUDY ASCITES FLUID. END OF PROCEDURE AT 1325. CATHETER REMOVED AND DRESSING APPLIED. NO BLEEDING NOTED. REPORT GIVEN TO NITHYA LOPEZ AND PATIENT TRANSPORTED TO [facility] VIA [facility] AAO X 3 WITH NO C/O PAIN.
[2020-04-18 14:52] LABS: ALBUMIN,BODY FLUID 1.1 g/dL
[2020-04-18 17:04] VITALS: BP 140/86
[2020-04-18 17:18] LABS: APPEARANCE BODY FLUID BLOODY (CLEAR); COLOR,BODY FLUID RED (LT YELLOW); SPECIMENTYPE,BODY FLUID ASCITES; TOTAL VOLUME,BODY FLUID 3200 mL
[2020-04-18 17:19] LABS: BODY FLUID WBC 671 /cu. mm.
[2020-04-18 17:20] LABS: BODY FLUID RBC 1652 /cu. mm.
[2020-04-18 18:22] LABS: BF LYMPHOCYTE 1 %
[2020-04-18 20:00] VITALS: BP 129/93
[2020-04-18] MEDS ORDERED: CEFTRIAXONE SODIUM 1 GM IVP SCH (20:00)
[2020-04-18] MEDS ORDERED: LACTULOSE 20 GM/30 ML UDCUP PO SCH (21:00)
--- NOTE | 2020-04-18 22:05 | NUR ---
I entered the patient's room to give him his evening medications of Pepcid, lactulose, and Rocephin. Patient is alert and oriented times 3 and his is at the bedside at 1950. Patient does not speak much and is quiet. When I left the room to see another patient he ordered ROCKY Charles, for the AMA form to sign and leave. She told me this and I went to speak with him first. He claimed that he did not want to be here in [facility] and was ready to leave. I explained the risks for recurring illness including shortness of breath, chest pain, unsteady balance, falls, headache, dizziness, including for his diagnosis of ascites. I also explained about his hyponatremia and his possible confusion, seizures, or at him. I encouraged Mr. Briceno to stay, but he was determined to leave. He verbalized understanding, signed the form and called his to come pick him up. I removed his IV catheter on his right hand and his telemetry pack. I had security let his come up to get him and Araceli took him down in a wheelchair and he left at 21:20 on 04/18/20. I spoke with Jennifer, customer complaint service supervisor, Zaki Jaquez my charge nurse, and Nader Bess the Hospitalist nurse practitioner. They all verbalized understanding.
[2020-04-19] MEDS ORDERED: AMLODIPINE BESYLATE 5 MG TAB PO SCH (09:00)
== END 2020-04-18 21:20 | disposition left against medical advice (07) | DRG 432 ==
LOC: EDH 18:46 → EDHIP 21:30 → 3DH 22:50
PROVIDERS: ADMIT Family Medicine; ATTEND Family Medicine
PROC: 5A1D70Z Performance of Urinary Filtration, Intermittent, Less than 6 Hours Per Day (ICD-10-PCS; principal; 2020-04-17)
PROC: 0W9G3ZZ Drainage of Peritoneal Cavity, Percutaneous Approach (ICD-10-PCS; 2020-04-18)
DX: K70.31 Alcoholic cirrhosis of liver with ascites (principal); J81.0 Acute pulmonary edema; N18.6 End stage renal disease; I13.11 Hypertensive heart and chronic kidney disease without heart failure, with stage 5 chronic kidney disease, or end stage renal disease; E87.1 Hypo-osmolality and hyponatremia; D68.9 Coagulation defect, unspecified; E87.70 Fluid overload, unspecified; E11.22 Type 2 diabetes mellitus with diabetic chronic kidney disease; E11.51 Type 2 diabetes mellitus with diabetic peripheral angiopathy without gangrene; F17.290 Nicotine dependence, other tobacco product, uncomplicated; D63.1 Anemia in chronic kidney disease; Z20.828 Contact with and (suspected) exposure to other viral communicable diseases; Z91.15 Patient's noncompliance with renal dialysis; Z91.19 Patient's noncompliance with other medical treatment and regimen; Z88.8 Allergy status to other drugs, medicaments and biological substances; Z91.018 Allergy to other foods; Z99.2 Dependence on renal dialysis; Z83.3 Family history of diabetes mellitus; Z82.0 Family history of epilepsy and other diseases of the nervous system; Z82.3 Family history of stroke; Z82.49 Family history of ischemic heart disease and other diseases of the circulatory system; Z82.5 Family history of asthma and other chronic lower respiratory diseases
CPT/HCPCS: 36415; 49083; 71045; 74176; 80048; 80053; 80076; 82040; 82042; 82140; 82948; 83036; 83605; 83690; 83735; 83880; 84100; 84145; 84157; 84484; 85014; 85018; 85025; 85027; 85610; 85730; 87040; 87071; 87205; 89051; 90935; 93005; G0378; J0694; J0696; J0698; J1815; J1940; J2405; J3490; P9046; U0003

== ENCOUNTER 2020-05-21 13:07 | Inpatient (IN) | payer MEDICARE ==
[~2020-05-21] VITALS: Ht 175.3 cm; Wt 79.8 kg
[2020-05-21] VITALS (11 sets, daily range): BP systolic 95–130; BP diastolic 50–77
[2020-05-21 13:52] LABS: BASOPHILS % (AUTO) 0.6 % (0.0-5.0); EOSINOPHILS % (AUTO) 1.3 % (0.0-8.0); LYMPHOCYTES % (AUTO) 11.3 % (21.0-51.0); MEAN CORPUSCULAR HEMOGLOBIN 27.4 pg (27.0-33.0); MEAN CORPUSCULAR HGB CONC 30.5 g/dL (32.0-36.0); MEAN CORPUSCULAR VOLUME 89.7 fL (79-99); MONOCYTES % (AUTO) 7.5 % (3.0-13.0); NEUTROPHILS % (AUTO) 78.5 % (40.0-77.0); PLATELET COUNT (AUTO) 73 K/uL (130-400); RED BLOOD CELL COUNT(AUTO) 2.34 MIL/uL (4.50-6.20); RED CELL DISTRIBUTION WIDTH 17.8 % (11.0-15.5); WHITE BLOOD COUNT (AUTO) 5.2 K/uL (4.8-10.8)
[2020-05-21] MEDS ORDERED: NOREPINEPHRINE 4MG/NS 250ML 250 ML IV ONE (13:52)
[2020-05-21 14:22] LABS: RAPID GROUP A STREP NEGATIVE (NEGATIVE)
[2020-05-21 14:32] LABS: INR 1.46 (0.85-1.15); PROTHROMBIN TIME 15.1 SEC (9.6-11.6)
[2020-05-21 14:33] LABS: PARTIAL THROMBOPLASTIN TIME 38.7 SEC (26.3-35.5)
[2020-05-21 14:35] LABS: ALBUMIN 1.5 g/dL (3.5-5.0); ASPARTATE AMINOTRANSFERASE 15 U/L (10-37); BILIRUBIN,TOTAL 1.3 mg/dL (0.2-1.0); CARBON DIOXIDE 26 mmol/L (21-32); CHLORIDE 95 mmol/L (101-111); CREATINE KINASE, TOTAL 23 U/L (21-232); GLOMERULAR FILTR. RATE CALC 7 mL/min (>60); GLUCOSE,RANDOM 85 mg/dL (70-105); POTASSIUM 3.8 mmol/L (3.5-5.1); SODIUM SERUM 134 mmol/L (136-145); TOTAL PROTEIN, SERUM 6.7 g/dL (6.0-8.3); UREA NITROGEN, BLOOD 61 mg/dL (7-18)
[2020-05-21 14:42] LABS: CREATININE 8.8 mg/dL (0.5-1.5)
[2020-05-21] MEDS ORDERED: ONDANSETRON HCL 4 MG/2 ML VIAL ONE (14:47)
[2020-05-21] MEDS ORDERED: MORPHINE SULFATE 2 MG/ML 1ML SYG ONE (14:47)
[2020-05-21 14:59] LABS: ALANINE AMINOTRANSFERASE < 6 U/L (12-78)
[2020-05-21] MEDS ORDERED: NOREPINEPHRINE 4MG/NS 250ML 250 ML IV SCH (15:30)
[2020-05-21] MEDS ORDERED: DEXTROSE 50%-WATER 50 ML DISP.SYRIN IV PRN (17:00)
[2020-05-21] MEDS ORDERED: GLUCAGON 1MG KIT 1 MG ML IM PRN (17:00)
[2020-05-21] MEDS: FUROSEMIDE 10 MG/ML 2ML VIAL IV SCH (18:39)
--- NOTE | 2020-05-21 20:00 | NUR ---
ASSESSMENT PT RESTING IN BED, AT BEDSIDE. LEVOPHED INFUSING WITHOUT DIFFICULTY. ASSESSMENT COMPLETED, SEE FLOW SHEET.
[2020-05-21] MEDS: INSULIN HUMULIN R 100 UNIT/ML 3ML SQ SCH (21:00)
[2020-05-21] MEDS ORDERED: CLOTRIMAZOLE 30 GM CREAM.GM. TP SCH (21:00)
[2020-05-21] MEDS ORDERED: ACETAMINOPHEN EXTRA STRENGTH 500 MG TABLET ONE (22:12)
[2020-05-22] VITALS: BP 123/73
[2020-05-22 01:00] VITALS: BP 134/74
[2020-05-22 02:00] VITALS: BP 138/81
[2020-05-22 03:00] VITALS: BP 115/69
[2020-05-22] MEDS ORDERED: SODIUM CHLORIDE 0.9% 100 ML IV ONE (03:35)
[2020-05-22 03:53] LABS: BASOPHILS % (AUTO) 0.4 % (0.0-5.0); EOSINOPHILS % (AUTO) 0.4 % (0.0-8.0); LYMPHOCYTES % (AUTO) 8.8 % (21.0-51.0); MEAN CORPUSCULAR HEMOGLOBIN 27.2 pg (27.0-33.0); MEAN CORPUSCULAR HGB CONC 30.2 g/dL (32.0-36.0); MEAN CORPUSCULAR VOLUME 90.1 fL (79-99); MONOCYTES % (AUTO) 6.6 % (3.0-13.0); NEUTROPHILS % (AUTO) 83.5 % (40.0-77.0); PLATELET COUNT (AUTO) 63 K/uL (130-400); RED BLOOD CELL COUNT(AUTO) 2.02 MIL/uL (4.50-6.20); WHITE BLOOD COUNT (AUTO) 7.1 K/uL (4.8-10.8)
[2020-05-22 03:57] LABS: HEMATOCRIT 18.2 % (42-54)
[2020-05-22 03:58] LABS: ALBUMIN 1.3 g/dL (3.5-5.0); BILIRUBIN,TOTAL 1.2 mg/dL (0.2-1.0); TOTAL PROTEIN, SERUM 5.9 g/dL (6.0-8.3)
[2020-05-22 04:00] VITALS: BP 130/69
[2020-05-22 04:07] LABS: CREATININE 9.1 mg/dL (0.5-1.5)
[2020-05-22] MEDS ORDERED: SODIUM CHLORIDE 0.9% 500ML 500 ML IV ONE (04:09)
[2020-05-22] MEDS: FUROSEMIDE 10 MG/ML 2ML VIAL IV SCH (04:55)
[2020-05-22 05:00] VITALS: BP 110/57
--- NOTE | 2020-05-22 06:00 | NUR ---
CONSENTS CONSENT OBTAINED FOR HEMODIALYSIS AND TRANSFUSION OF BLOOD.
[2020-05-22] MEDS: INSULIN HUMULIN R 100 UNIT/ML 3ML SQ SCH (06:41)
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
--- NOTE | 2020-05-22 07:50 | NUR ---
AMA PAPERWORK PT INFORMED THAT DR LUCAS WOULD BE IN THIS MORNING TO SPEAK WITH HIM REGARDING THE RISK AND BENEFITS OF PTS DECISION TO LEAVE AMA. PT REFUSED TO WAIT FOR THE DOCTOR AND EVEN CALLED THE [place] [facility] AND REPORTED BEING FORCED TO BE IN THE HOSPITAL. PT SPOUSE, SEED PELLETER, AND PHYSICIAN MADE AWARE THAT HE LEFT AMA. THE DISCHARGE AGAINST MEDICAL ADVICE AND REFUSAL TO SUBMIT TO TREATMENT/PROCEDURES ARE SIGNED MY PT AND WITNESS BY MYSELF HIS ONCOMING PRIMARY NURSE.
== END 2020-05-22 07:50 | disposition left against medical advice (07) | DRG 314 ==
LOC: EDH 13:07 → EDHIP 14:30 → 2CH 17:30
PROVIDERS: ADMIT Hospitalist; ATTEND Hospitalist
DX: I95.9 Hypotension, unspecified (principal); N18.6 End stage renal disease; I12.0 Hypertensive chronic kidney disease with stage 5 chronic kidney disease or end stage renal disease; R18.8 Other ascites; D63.1 Anemia in chronic kidney disease; E11.22 Type 2 diabetes mellitus with diabetic chronic kidney disease; F17.210 Nicotine dependence, cigarettes, uncomplicated; Z20.828 Contact with and (suspected) exposure to other viral communicable diseases; Z53.29 Procedure and treatment not carried out because of patient's decision for other reasons; L89.892 Pressure ulcer of other site, stage 2; K74.60 Unspecified cirrhosis of liver; Z79.4 Long term (current) use of insulin; Z82.0 Family history of epilepsy and other diseases of the nervous system; Z82.3 Family history of stroke; Z82.49 Family history of ischemic heart disease and other diseases of the circulatory system; Z83.3 Family history of diabetes mellitus; Z99.2 Dependence on renal dialysis; Z91.018 Allergy to other foods
CPT/HCPCS: 36415; 71045; 80053; 82140; 82550; 82948; 84484; 85025; 85610; 85730; 86850; 86900; 86901; 86923; 87426; 87804; 87880; 93005; G0378; J1940; J2405; J3490; J7040; U0003